=== PATIENT | female | born 1975 | race Caucasian/White ===

== ENCOUNTER 2024-12-04 18:12 | Emergency (ER) | payer MEDICAID ==
[~2024-12-04] VITALS: Ht 157.5 cm; Wt 75.9 kg
[2024-12-04 18:13] VITALS: TEMP 97.9
[2024-12-04] MEDS ORDERED: [UNRECOGNIZED DRUG - CODE] PO (18:19)
[2024-12-04 18:48] LABS: PLATELET COUNT (AUTO) 323 K/uL (150-450); RED BLOOD CELL COUNT(AUTO) 4.72 MIL/uL (4.00-5.20); RED CELL DISTRIBUTION WIDTH 13.9 % (11.5-14.5); WHITE BLOOD COUNT (AUTO) 19.1 K/uL (4.5-11.0)
[2024-12-04 18:57] LABS: APPEARANCE,URINE CLEAR (CLEAR); CALCIUM, TOTAL 8.9 mg/dL (8.8-10.5); CREATININE 0.95 mg/dL (0.60-1.30); GLOMERULAR FILTR. RATE CALC > 60 mL/min (>60); GLUCOSE, URINE (UA) NEGATIVE (NEGATIVE); GLUCOSE,RANDOM 141 mg/dL (70-110); LEUKOCYTE ESTERASE ,URINE NEGATIVE (NEGATIVE); NITRATE,URINE NEGATIVE (NEGATIVE); OCCULT BLOOD,URINE LARGE (NEGATIVE); SODIUM SERUM 140 mmol/L (136-145); SPECIFIC GRAVITIY, URINE 1.005 (1.003-1.030); UREA NITROGEN, BLOOD 16 mg/dL (7-18)
[2024-12-04 19:05] LABS: RBC MORPHOLOGY COMMENT NORMAL RBC MORPH
[2024-12-04 19:06] LABS: SQUAMOUS EPITHELIAL CELL,UR Many /LPF (None Seen)
[2024-12-04] MEDS ORDERED: IOHEXOL 350 MG/ML 100 ML VIAL ONE (19:06)
[2024-12-04] MEDS ORDERED: 0.9% SODIUM CHLORIDE 10 ML SYRINGE IVP ONE (19:06)
[2024-12-04] MEDS ORDERED: SODIUM CHLORIDE 0.9% 100 ML ONE (19:06)
[2024-12-04 19:14] LABS: ASPARTATE AMINOTRANSFERASE 27.0 U/L (15-37); TOTAL PROTEIN, SERUM 7.8 g/dL (6.4-8.2)
[2024-12-04] MEDS: MORPHINE SULFATE 2 MG/ML SYRINGE IVP ONE (21:50)
[2024-12-04] MEDS: SODIUM CHLORIDE 0.9% 1,000 ML IV ONE (21:50)
[2024-12-04] MEDS: KETOROLAC TROMETHAMINE 30 MG/ML VIAL IVP ONE (21:51)
[2024-12-04] MEDS: ONDANSETRON HCL 4 MG/2 ML VIAL IVP ONE (21:51)
[2024-12-04 22:30] VITALS: BP 138/87; PULSE 95; RESP 18; O2SAT 98
[2024-12-04] MEDS ORDERED: TAMS0.4C94 PO (23:28)
== END 2024-12-05 00:37 | disposition home or self-care (01) ==
LOC: EMS 18:14
DX: N20.9 Urinary calculus, unspecified (principal); I10 Essential (primary) hypertension; R10.32 Left lower quadrant pain; R11.2 Nausea with vomiting, unspecified; R30.0 Dysuria; Z79.899 Other long term (current) drug therapy
CPT/HCPCS: 99285; 74177; 96374; 96375; 96361; 80048; 80076; 81001; 84703; 85025; 36415; J1885; Q9967; J2270; J2405; J7030; J7050